=== PATIENT | female | born 1965 | race Caucasian/White ===

== ENCOUNTER 2024-10-20 08:10 | Day surgery (SDC) | payer BC, SELFPAY ==
[2024-10-20] VITALS (19 sets, daily range): BP systolic 105–152; BP diastolic 60–95; BMI 35.2
[2024-10-20] MEDS: TYLENOL 1000 MG PO (09:29)
[2024-10-20 12:22] LABS: ACT-LR - POC 308 Seconds (116-155)
[2024-10-20 12:42] LABS: ACT-LR - POC 374 Seconds (116-155)
--- NOTE | 2024-10-20 13:09 | ITS.CL.ABL ---
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
Ablation
Procedure Report:
ELECTROPHYSIOLOGY ABLATION STUDY
DATE:: October 20, 2024�����������������������������REFERRING: Dr. Currie
INDICATION: Paroxysmal supraventricular tachycardia in the form of narrow complex tachycardia with prior pulmonary vein isolation and AV angelo reentry ablation in 2018
HISTORY: See H and P.��As above
ANTIARRHYTHMIC DRUG: Diltiazem
PRE-PROCEDURE ARNOLDO: No atrial thrombus on intracardiac ultrasound
PRESENTING RHYTHM: Sinus rhythm
'TIME-OUT':��called and confirmed.
SEDATION/ANESTHESIA:��provided via the anesthesia department using general anesthesia (LMA).
INTRAVENOUS/ARTERIAL ACCESS:
Right femoral venous - 10 Fr, 8Fr
Left femoral venous - 8 Fr, 6 Fr
[id number] suture bilaterally after 40 mg of protamine
Ultrasound guidance for bilateral femoral vein access was utilized by me to obtain access with demonstration of normal anatomy
CHADS-VASC Score:
HAS-Bled Score
PROCEDURE:
1.��A decapolar CS catheter was placed within the CS for mapping and pacing.��This was also used as the reference catheter for the 3-D map. Given the evidence for narrow complex tachycardia with significant symptoms as an outpatient we elected for
EP study under conscious sedation today. Ventricular stimulation at a 500 ms drivetrain with single double and triple extrastimuli was performed and the patient was noninducible for ventricular tachycardia arrhythmia. Retrograde conduction was
midline and concentric. Extrastimuli from the atrium demonstrated that there was no evidence for slow pathway conduction and the slow pathway of the AV node likely remained eliminated from prior AV angelo reentry ablation�slow pathway modification.
We were able to induce with aggressive atrial burst pacing and extrastimuli short runs of atrial tachycardia with eccentric CS activation distal to proximal suggesting short bursts of left atrial tachycardia. Although the patient has not had
clinical atrial fibrillation since her 2018 procedure 1 atrial tachycardia at 220 ms degenerated into atrial fibrillation after approximately 20 beats. This atrial fibrillation persisted and required cardioversion with a 300 J synchronized biphasic
shock. As such we then converted to general anesthesia and performed transseptal puncture as below to check the prior pulmonary vein isolation. The pulmonary veins were isolated at baseline with antral ingrowth into the everett of the left veins.
Just outside the pulmonary veins spontaneous couplets triplets and quadruplets were noted from the posterior wall just outside the left pulmonary vein level of isolation.
2. The intracardiac ultrasound catheter was positioned in the RA to identify the FO for targeting of transseptal puncture, assist��in identification of the pulmonary vein ostia, monitoring pre and post ablation pulmonary vein flow velocities,
monitoring for 'bubble' formation during RF application as a sign of thermal injury,��and to monitor for pericardial effusion during mapping and ablation procedure.���Left atrial size, LV ejection fraction, and pulmonary vein flows were monitored
pre and post ablation procedure. The other valves were inspected and found to be free of significant regurgitation or stenosis. There was no pericardial effusion pre or post procedure via Yao intracardiac ultrasound.
3.��Half of the calculated heparin bolus was administered prior to the first transeptal puncture.��Transseptal puncture was performed to diagnose RA and LA pressure so that safety of LA mapping and ablation could be further assessed, and to access
the left atrium and pulmonary veins for mapping and ablation.��This entailed advancing an 16.8 sheath, RF wire, with dilator into the superior vena cava and withdrawing both (monitoring intracardiac ultrasound, fluoroscopy and tip pressure) with the
tip oriented toward the atrial septum.��The fossa ovalis was engaged (indicated by sudden displacement of the sheath tip as well as tenting of the fossa seen on intracardiac ultrasound).��Left atrial access required a pass with the Brockencarlosugh
needle extended.��Left atrial catheter position was confirmed by pressure monitoring (RA mean pressure 8 mm Hg and LA mean presure 12 mm Hg), LA saturation (99%),��as well as fluoroscopy.��The sheath was advanced over the dilator and positioned in
the left atrium.��This procedure was repeated for the Agilis sheath.��The remainder of the calculated heparin bolus was administered and heparin was
infused to maintain ACT at 300 -350 seconds throughout the case.
4.��RA pacing was performed via the proximal decapolar poles and LA pacing was performed via the distal decapolr poles.
5. A quadrapolar catheter was first positioned at the His position for His Bundle recording which was tagged via the 3-D Navex sytem, and then passed to the RVA for RV pacing and recording. Ventricular stimulation was performed with a quadripolar
catheter.
6. The Penta spline catheter and grid catheter were placed in each of the LIPV, LSPV, RSPV and the RIPV.��
7.��Next, a 3-D map was created using Navex.���A 3-D reconstructed CT image was compared to the 3-D Navex map to assist in anatomic interpretation, mapping and ablation.��The CT image and the NavX image were fused.
8. Total of 37 lesions were given with the Penta spline catheter. All of in basket poses to the left superior and left inferior pulmonary veins and basket pose extension onto the posterior wall at the roof and down the posterior wall just outside
prior ablation lesion set. We then performed roof posterior wall and floor of the left atrium in flower pose rendering all 4 pulmonary veins isolated and the roof posterior wall and floor of the left atrium isolated. Repeat ventricular stimulation
and atrial stimulation did not induce any other tachyarrhythmia
9. Normal sinus node and AV angelo function.
TOTAL FLOURO TIME: 12.1 minutes 123 mGy
TOTAL RF DURATION: 0 minutes
REVERSAL OF HEPARIN: 40 mg of protamine, slow IV administration
COMPLICATIONS:
None
Intracardiac US shows no pericardial effusion post ablation.
SUMMARY:��
Complex left atrial mapping and ablation.
Inducible for nonsustained left atrial tachycardia from multiple sites 1 of which degenerated into atrial fibrillation. There was no evidence for slow pathway conduction. Patient was noninducible for ventricular tachyarrhythmia and there was no
eccentric anterograde or retrograde conduction. Spontaneous triplets and quadruplets from the left atrial posterior wall just outside the left veins were noted and as above 1 short burst of atrial tachycardia during stimulation from the right
atrium degenerated into atrial fibrillation. Reisolation of left veins and roof posterior wall and floor of the left atrium with the Penta spline catheter.
RECOMMENDATIONS:
1. Admit to monitored bed.
2. Initiate Eliquis 5 mg twice daily x 3 months
3.��I will see the patient in 6 to 8 weeks
4.��Lower diltiazem to 40 mg daily
Copy to: Dr. Jacey New at [place] [facility], Dr. Miguel Bishop at [facility]
[2024-10-20] MEDS: ZOFRAN 4 MG IV (13:33)
[2024-10-20] MEDS: LASIX 20 MG IV (13:44)
[2024-10-20] MEDS: MAALOX 30 ML PO ×2 (15:44→22:23)
--- NOTE | 2024-10-20 17:02 | PTCARENOTE ---
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 monitor placed NSR, VSS. patient c/o heartburn, Maalox po given as ordered. patient has a nonproductive cough, c/o
throat being dry, water given. also put HOB elevated 30 degrees, Dr. Padilla aware. oriented to room and surroundings. patient is aware that she needs to lie flat until sutures are removed. at bedside.
[2024-10-20] MEDS: ELIQUIS 5 MG PO (19:16)
--- NOTE | 2024-10-20 20:10 | PTCARENOTE ---
Received patient at change of shift. SR on the monitor, HR in the 70s. Bilateral groins CDI. Pt requested Tylenol with HS medication for chronic lower back pain. Call melendez within reach.
[2024-10-20] MEDS: COZAAR 100 MG PO (22:18)
[2024-10-20] MEDS: TYLENOL 650 MG PO (22:18)
[2024-10-21 04:25] VITALS: BP 125/68
[2024-10-21] MEDS: SYNTHROID 75 MCG PO (06:16)
[2024-10-21 06:59] VITALS: BP 111/67
[2024-10-21] MEDS: CARDIZEM CD 240 MG PO (08:10)
[2024-10-21] MEDS: CYTOMEL 10 MICROGRAM PO (08:10)
[2024-10-21] MEDS: ELIQUIS 5 MG PO (08:10)
--- NOTE | 2024-10-21 08:38 | W.PN.CARDCBS ---
Addendum entered and electronically signed by Jones Padilla MD 10/21/24 09:52:
Patient seen and examined
Agree with SENIOR OUTSIDE SALES REPRESENTATIVE note and assessment
Agree with SENIOR OUTSIDE SALES REPRESENTATIVE plan
s/p inducible multifocal AT which degenerated to AF, s.p. PVI plus LAPW isolation with PFA. Short automatic AT overnight without too much symptoms
exam:
aao x 3
non focal neurologically
jvp 6
cor regular
lungs ctab
abd soft
IMPRESSION:
PAF, prior PVI (2017)
AVNRT, s/p ablation (2018)
Recurrent AFib, s/p PFA, 10/20/24
TIA (2013)
HTN
Hypothyroidism
PLAN:
Tele- NSR w/short bursts AT, self limiting
Discontinue aspirin
Start eliquis 5mg BID for elevated [id number] will remain on for 3 months and anticipate outpt monitoring for further eval and possibly stop OAC given TIA will discuss lifelong with her if she is amenable
Decrease diltiazem to 240mg/daily
Groin sites stable
oob ambulating
Lab results pending- difficult stick this morning
She has an eye procedure and a knee injection planned- will delay until OAC can be held/stopped
followup with Dr. Padilla in 6 weeks and eventually with [facility]
home today
Original Note:
Today's Communication / Plan
-
Lab results pending
Decrease diltiazem to daily
followup in 6wks at [facility]
home today
Impression / Plan
-
PCP: Santiago Acevedo MD
CDY: Pawel Currie MD
59 y/o, PMH AVNRT, PAF w/prior PVI/AVNRT ablation (2018), now with lightheadedness, palpitations and presyncope. 2 week outpt monitor with wide complex tachycardia, possibly NSVT. She has prior TIA in 2013. She has not had any AFib since PVI and
only takes aspirin 81mg daily, with a [id number]=1.
Presented for EP study, during which AFib was induced, and she underwent redo PVI.
IMPRESSION:
PAF, prior PVI (2017)
AVNRT, s/p ablation (2017)
Recurrent AFib, s/p PFA, 10/20/24
TIA (2013)
HTN
Hypothyroidism
PLAN:
Tele- NSR w/short bursts AT, self limiting
Discontinue aspirin
Start eliquis 5mg BID for elevated [id number] will remain on for 3 months and anticipate outpt monitoring for further eval and possibly stop OAC at that time and restart aspirin.
Decrease diltiazem to 240mg/daily
Groin sites stable
oob ambulating
Lab results pending- difficult stick this morning
She has an eye procedure and a knee injection planned- will delay until OAC can be held/stopped
followup with Dr. Padilla in 6 weeks and eventually with [facility]
home today
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
Subjective
Date of Service: October 21, 2024
Denies cp/dyspnea
brief palpitations overnight that correlate with AT
oob ambulating
groin sites tender
Objective
Vital Signs and I&O:
Vital Signs
Temp Pulse Resp BP Pulse Ox
98.5 F 64 20 111/67 97
10/21/24 06:59 10/21/24 08:10 10/21/24 06:59 10/21/24 08:10 10/21/24 06:59
Vital Signs
Temp Pulse Resp BP Pulse Ox
98.5 F 64 20 111/67 97
10/21/24 06:59 10/21/24 08:10 10/21/24 06:59 10/21/24 08:10 10/21/24 06:59
Intake & Output
10/19/24 10/20/24 10/21/24 10/22/24
06:59 06:59 06:59 06:59
Output Total 1300 / 1300
Balance -1300 / -1300
Physical Exam
Physical Exam
AAOx3, MAEE 5/5
RRR S1 S2 no murmurs
CTA bilat, non labored
soft abd, + bs
bilat groin sites without ht/bleeding, mildly tender to palpation but soft
bilat extremities w/palpable distal pulses, no edema
--- NOTE | 2024-10-21 08:39 | PTCARENOTE ---
Pt is AOx3, no complaints of pain or discomfort. B/L groin sites CDI. Independent OOB. Awaiting phlebotomy to draw morning labs. SR on tele monitor, VSS. Call melendez within reach.
[2024-10-21 09:08] LABS: Hematocrit 38.9 % (37.0-47.0); Hemoglobin 13.4 g/dL (12.0-16.0); Mean Corp Hgb Conc. 34.4 g/dL (33.0-37.0); Mean Corpuscular Volume 85.7 fL (81.0-99.0); Platelet Count 157 10^3/uL (130-400); Red Cell Dist. Width 13.0 % (11.5-14.5)
[2024-10-21 09:50] LABS: Blood Urea Nitrogen 18 mg/dl (7-17); Calcium 9.9 mg/dl (8.4-10.2); Carbon Dioxide 28 mmol/L (22-30); Chloride 105 mmol/L (98-107); Estimated Creatinine Clearance 93 ml/min; Glucose 93 mg/dl (70-99); Magnesium 2.4 mg/dl (1.6-2.3); Potassium 4.2 mmol/L (3.5-5.1); Sodium 136 mmol/L (135-145); eGFR > 60.00
--- NOTE | 2024-10-21 10:14 | CM ---
priced win with pts pharmacy- her copay is $55, will give pt copay card which will be $10/month.
--- NOTE | 2024-10-21 10:19 | W.DS.TRANS ---
DC Summary - Adult Education Instructor
-
Discharge Instructions:
Sleep Apnea Risk Intermediate
Discharge Diagnosis/Procedures Atrial fibrillation, post ablation
Diet Low Sodium
Driving Restrictions No driving for 24 hours
Instructions:
Stand-Alone Forms: DC Instructions- Cath/EP Lab
Changes to Home Medications: Yes
Discharge Medications:
DC Medications w/original date entered in [facility]
losartan 50 mg tablet 100 mg PO HS 10/13/13
cholecalciferol (vitamin D3) 125 mcg (5,000 unit) disintegrating tablet 5,000 unit PO DAILY 12/23/17
docusate sodium 100 mg capsule 200 mg PO DAILY 12/23/17
levothyroxine 75 mcg tablet 75 mcg PO DAILY 12/23/17
liothyronine 5 mcg tablet 10 mcg PO DAILY 12/23/17
magnesium 250 mg tablet 500 mg PO QPM 10/20/24
apixaban 5 mg tablet (Eliquis) 5 mg PO BID #60 tabs 10/21/24
diltiazem HCl 240 mg capsule,24 hr,extended release 240 mg PO QPM #0 caps 10/21/24
Home Medication Changes
NEW: apixaban
STOP: aspirin
DOSE DECREASE: diltiazem
Pending Results: No
[2024-10-21 12:21] VITALS: BP 102/54
== END 2024-10-21 13:02 | disposition home or self-care (01) ==
LOC: CATH 08:10
PROVIDERS: Nurse Practitioner Adult Health; ATTENDING PHYSICIAN Internal Medicine Cardiovascular Disease; FAMILY PHYSICIAN Internal Medicine; OTHER PHYSICIAN Internal Medicine Cardiovascular Disease
DX: I48.0 Paroxysmal atrial fibrillation (principal); I47.19 Other supraventricular tachycardia; Z86.73 Personal history of transient ischemic attack (TIA), and cerebral infarction without residual deficits; I10 Essential (primary) hypertension; E03.9 Hypothyroidism, unspecified; Z79.82 Long term (current) use of aspirin; Z79.01 Long term (current) use of anticoagulants; Z79.899 Other long term (current) drug therapy; Z79.890 Hormone replacement therapy
CPT/HCPCS: C1730; C1769; C1892; C1894; 80048; 83735; 85027; 85347; 86850; 86900; 86901; 93005; 93656; 93657; C1732; C1733; C1766